=== PATIENT | female | born 1990 | race African-American/Black ===

== ENCOUNTER 2020-10-18 21:13 | Emergency (ER) | payer MEDICAID ==
[~2020-10-18] VITALS: Ht 160 cm; Wt 54.4 kg
[2020-10-18 21:33] VITALS: BP_SYST 121
[2020-10-18] MEDS ORDERED: AZITHROMYCIN 250 MG TABLET PO ONE (23:45)
[2020-10-18] MEDS ORDERED: cefTRIAXone 1 GM VIAL IM ONE (23:45)
[2020-10-19] MEDS ORDERED: metroNIDAZOLE 500 MG TABLET PO ONE (01:00)
[2020-10-19 01:11] LABS: BILIRUBIN,URINE NEGATIVE (NEGATIVE); BLOOD, URINE NEGATIVE (NEGATIVE); CLARITY/URINE CLOUDY (CLEAR); COLOR,URINE YELLOW (YELLOW); GLUCOSE,URINE NEGATIVE (NEGATIVE); KETONES,URINE TRACE (NEGATIVE); LEUKOCYTE ESTERASE ,URINE 2+ (NEGATIVE); NITRITE, URINE NEGATIVE (NEGATIVE); PROTEIN URINE TRACE (NEGATIVE); UROBILINOGEN,URINE 0.2 (0.2-1.0)
[2020-10-19] MEDS ORDERED: CLEVAG VG (01:23)
[2020-10-19 01:24] VITALS: BP_SYST 108
[2020-10-19 01:31] LABS: BACTERIA,URINE MODERATE /HPF (None Seen); RBC,URINE 0-3 /HPF (0-3); WBC,URINE 50-80 /HPF (0-3)
[2020-10-19 01:32] LABS: MUCUS,URINE 1+ /LPF (None Seen)
[2020-10-19] MEDS ORDERED: NITR-85 PO (01:37)
[2020-10-20] MEDS ORDERED: METR500T PO (05:37)
[2020-10-21 02:07] LABS: CHLAMYDIA TRACHOMATIS NAA Negative (Negative); NEISSERIA GONORRHOEAE NAA Negative (Negative)
== END 2020-10-19 01:46 | disposition home or self-care (01) ==
LOC: SED 21:13
DX: O23.42 Unspecified infection of urinary tract in pregnancy, second trimester (principal); A59.01 Trichomonal vulvovaginitis; Z79.899 Other long term (current) drug therapy; Z3A.23 23 weeks gestation of pregnancy
CPT/HCPCS: 36415; 81000; 86592; 87086; 87210; 87491; 87591; 96372; 99283; J0696; Q0144